=== PATIENT | female | born 1955 ===

== ENCOUNTER 2017-07-23 13:20 | Emergency (ER) | payer BC ==
[2017-07-23 14:10] VITALS: RESP 18; TEMP 98; O2SAT 99; BMI 35.9
[2017-07-23 14:13] VITALS: BP 124/78; PULSE 76
--- NOTE | 2017-07-23 20:08 | ED PDOC ---
Arrival/HPI - General Chief Complaint: Suture/Staple Removal Time Seen by Provider: 07/23/17 13:29 Historian: Patient - History of Present Illness Narrative History of Present Illness (Text): 07/23/17 13:30 A 62 year old female, whose past medical history includes , presents to the emergency department for suture removal. Patient's 5 sutures have been removed from bridge of nose, which were placed 9 days ago. Patient denies any pain or any complaints. No PMD Past Medical History - Provider Review Nursing Documentation Reviewed: Yes - Pulmonary Hx Respiratory Disorders: Yes Hx Asthma: Yes Other/Comment: aspergillus lung infection - Gastrointestinal Hx Gastrointestinal Disorders: Yes (Barretts esophagus) Hx Gastroesophageal Reflux: Yes - Psychiatric Hx Substance Use: No Family/Social History - Physician Review Nursing Documentation Reviewed: Yes Family/Social History: No Known Family HX Smoking Status: Never Smoked Hx Alcohol Use: No Hx Substance Use: No Review of Systems - Review of Systems Musculoskeletal: absent: Other (no discharge and no pain from sutures at bridge of nose) Physical Exam Vital Signs Reviewed: Yes Vital Signs Temp Pulse Resp BP Pulse Ox 07/23/17 14:12 76 18 124/78 99 07/23/17 13:22 98 F 87 18 139/87 99 Temperature: Afebrile Blood Pressure: Normal Pulse: Regular Respiratory Rate: Normal Appearance: Positive for: Well-Appearing Pain Distress: None Mental Status: Positive for: Alert and Oriented X 3 - Systems Exam Nose (External): Present: Other (suture removal of 5 stitches from bridge of nose) Medical Decision Making ED Course and Treatment: 07/23/17 13:37 PROCEDURE: SUTURE REMOVAL Performed by the emergency provider Location: Nasal Bridge Length: cm Distal CMS: Normal. No deficits. Neurovascularly intact. Preparation: The wound was cleaned with NS and [place]. The area was prepped and draped in the usual sterile fashion. Procedure: In total, 5 sutures were removed. Post-Procedure: Good closure and hemostasis. The patient tolerated the procedure well and there were no complications. CSM remains intact. - Scribe Statement The provider has reviewed the documentation as recorded by the Destiny Hardin Provider Scribe Attestation: All medical record entries made by the Scribe were at my direction and personally dictated by me. I have reviewed the chart and agree that the record accurately reflects my personal performance of the history, physical exam, medical decision making, and the department course for this patient. I have also personally directed, reviewed, and agree with the discharge instructions and disposition. Disposition/Present on Arrival - Present on Arrival Any Indicators Present on Arrival: No History of DVT/PE: No History of Uncontrolled Diabetes: No Urinary Catheter: No History of Decub. Ulcer: No History Surgical Site Infection Following: None - Disposition Have Diagnosis and Disposition been Completed?: Yes Diagnosis: Visit for suture removal Disposition: HOME/ ROUTINE Disposition Time: 14:00 Condition: GOOD Discharge Instructions (ExitCare): Stitches Removal Additional Instructions: Thank you for letting us take care of you today. The emergency medical care you received today was directed at your acute symptoms. If you were prescribed any medication, please fill it and take as directed. It may take several days for your symptoms to resolve. Return to the Emergency Department if your symptoms worsen, do not improve, or if you have any other problems. Please contact your doctor or call one of the physicians/clinics you have been referred to that are listed on the Patient Visit Information form that is included in your discharge packet. Bring any paperwork you were given at discharge with you along with any medications you are taking to your follow up visit. Our treatment cannot replace ongoing medical care by a primary care provider (PCP) outside of the emergency department. Thank you for allowing the [facility] team to be part of your care today. Follow up with your doctor for any concerns. Referrals: [employer] [facility] [employer] Daisy Reshanon, [Family Provider] - Follow up with primary Forms: [employer] (Mongolian)
== END 2017-07-23 14:14 | disposition home or self-care (01) ==
LOC: ED 13:20 → MERGE 13:20 → ED 14:14
DX: Z48.02 Encounter for removal of sutures (principal)